=== PATIENT | female | born 1935 | race Caucasian/White ===

== ENCOUNTER 2021-02-15 00:43 | Observation (INO) | payer MEDICARE ==
[~2021-02-15] VITALS: Ht 160 cm; Wt 48.9 kg
[~2021-02-15 00:43] MED LIST: ACHD5005 PO; LEVO50TA6 PO; MELO7.5T46 PO
[2021-02-15] MEDS ORDERED: NS IV 1000 ML 1,000 ML IV SCH (01:00)
--- NOTE | 2021-02-15 01:06 | ED General ---
General Stated Complaint: AMS Source of Information: EMS, Family Exam Limitations: Physical Impairments History of Present Illness Date Seen by Provider: Feb 15, 2021 Time Seen by Provider: 00:50 Initial Comments Patient is an 85-year-old female who presents to the emergency department by EMS this evening with a chief complaint of altered mental status. EMS initially states that the patient has been feeling poorly for 24 hours family states that the patient has been feeling unwell throughout the duration of the evening and then all of a sudden between 10 and 11:00 tonight seem to want to curl up on her left side and became nonverbal. Patient according to family is normally talkative and interacts with family. She had coffee earlier today and was able to eat a little bit. It seems like the illness came on rather suddenly. Family does state that she complained of a headache earlier this evening and yesterday.. The patient is unable to provide any HPI, review of systems, past medical family or social history. She feels very warm/febrile. She is slightly tachycardic. Blood pressure is adequate. She is leaning to the left with what appears to be normal gaze. Review of systems unobtainable secondary to the patient's illness at this time. Timing/Duration: 4-6 Hours Severity: Severe Allergies and Home Medications Allergies Coded Allergies: NKANo Known Allergies (Verified Allergy, Unknown, 12/08/06) Home Medications Hydrocodone Bit/Acetaminophen 1 Each Tablet, 1 EACH PO Q4-6HR PRN for PAIN- MODERATE Prescribed by: ADDISON WYNN on 11/09/19 1036 Levothyroxine Sodium 50 Mcg Tablet, 50 MCG PO DAILY, (Reported) Meloxicam 7.5 Mg Tablet, 7.5 MG PO BID, (Reported) Patient Home Medication List Home Medication List Reviewed: Yes Review of Systems Review of Systems Constitutional: see HPI Psychiatric/Neurological: Headache All Other Systems Reviewed Negative Unless Noted: Yes Past Xgtubuh-Wmfkwh-Lzvbum Hx Patient Social History 2nd Hand Smoke Exposure: No Recent Hopitalizations: No Immunizations Up To Date Tetanus Booster (TDap): Unknown Seasonal Allergies Seasonal Allergies: No Past Medical History Surgeries: Yes Orthopedic Respiratory: No Cardiac: Yes High Cholesterol Neurological: No Genitourinary: No Gastrointestinal: No Musculoskeletal: Yes Arthritis, Fractures Endocrine: Yes Hypothyroidsim HEENT: No Cancer: No Psychosocial: No Integumentary: No Family Medical History No Pertinent Family Hx Physical Exam Vital Signs Vital Signs - First Documented 02/15/21 01:39 Temp 40.1 Capillary Refill : Height, Weight, BMI Height: '" Weight: lbs. oz. kg; 20.99 BMI Method: General Appearance: Chronically ill, Cachetic Eyes: Bilateral Eye Normal Inspection, Bilateral Eye PERRL Respiratory: Lungs Clear, Normal Breath Sounds, No Accessory Muscle Use, No Respiratory Distress Cardiovascular: Regular Rate, Rhythm, Tachycardia Gastrointestinal: Non Tender, Soft, Abnormal Bowel Sounds (Hyperactive bowel sounds) Extremity: Normal Capillary Refill, Normal Inspection Neurologic/Psychiatric: Aphasia (Patient is currently nonverbal), Depressed Affect, Other (Unable to assess cranial nerves with the rest of her neurologic exam as the patient is basically unresponsive at this time, her eyes are open. When being moved from the stretcher her arm was caught and she was able to say "ow") Skin: Normal Color, Warm/Dry Focused Exam Lactate Level 02/15/21 00:55: Lactic Acid Level 1.72 Lactic Acid Level Laboratory Tests Test 02/15/21 00:55 Lactic Acid Level 1.72 MMOL/L (0.50-2.00) Within 3hrs of presentation: Admin fluids, Admin ABX, Blood cultures prior to ABX's, Lactate level Progress/Results/Core Measures Suspected Sepsis SIRS Temperature: Pulse: Respiratory Rate: Laboratory Tests 02/15/21 00:55: White Blood Count 11.5H Blood Pressure / Mean: 02/15/21 00:55: Lactic Acid Level 1.72 Laboratory Tests 02/15/21 00:55: Creatinine 0.87, INR Comment 1.1, Platelet Count 119L, Total Bilirubin 2.6H Results/Orders Lab Results Laboratory Tests Test 02/15/21 00:55 02/15/21 01:10 Range/Units White Blood Count 11.5 H 4.3-11.0 10^3/uL Red Blood Count 4.17 3.80-5.11 10^6/uL Hemoglobin 12.3 11.5-16.0 g/dL Hematocrit 39 35-52 % Mean Corpuscular Volume 93 80-99 fL Mean Corpuscular Hemoglobin 30 25-34 pg Mean Corpuscular Hemoglobin Concent 32 32-36 g/dL Red Cell Distribution Width 13.9 10.0-14.5 % Platelet Count 119 L 130-400 10^3/uL Mean Platelet Volume 10.3 9.0-12.2 fL Immature Granulocyte % (Auto) 1 % Neutrophils (%) (Auto) 94 H 42-75 % Lymphocytes (%) (Auto) 4 L 12-44 % Monocytes (%) (Auto) 1 0-12 % Eosinophils (%) (Auto) 0 0-10 % Basophils (%) (Auto) 0 0-10 % Neutrophils # (Auto) 10.8 H 1.8-7.8 10^3/uL Lymphocytes # (Auto) 0.5 L 1.0-4.0 10^3/uL Monocytes # (Auto) 0.1 0.0-1.0 10^3/uL Eosinophils # (Auto) 0.0 0.0-0.3 10^3/uL Basophils # (Auto) 0.0 0.0-0.1 10^3/uL Immature Granulocyte # (Auto) 0.1 0.0-0.1 10^3/uL Neutrophils % (Manual) 88 % Lymphocytes % (Manual) 6 % Monocytes % (Manual) 2 % Eosinophils % (Manual) 2 % Basophils % (Manual) 0 % Band Neutrophils 2 % Blood Morphology Comment NORMAL Prothrombin Time 14.6 12.2-14.7 SEC INR Comment 1.1 0.8-1.4 Activated Partial Thromboplast Time 33 24-35 SEC Sodium Level 139 135-145 MMOL/L Potassium Level 3.9 3.6-5.0 MMOL/L Chloride Level 106 98-107 MMOL/L Carbon Dioxide Level 20 L 21-32 MMOL/L Anion Gap 13 5-14 MMOL/L Blood Urea Nitrogen 24 H 7-18 MG/DL Creatinine 0.87 0.60-1.30 MG/DL Estimat Glomerular Filtration Rate > 60 BUN/Creatinine Ratio 28 Glucose Level 151 H 70-105 MG/DL Lactic Acid Level 1.72 0.50-2.00 MMOL/L Calcium Level 8.8 8.5-10.1 MG/DL Corrected Calcium 9.1 8.5-10.1 MG/DL Total Bilirubin 2.6 H 0.1-1.0 MG/DL Aspartate Amino Transf (AST/SGOT) 26 5-34 U/L Alanine Aminotransferase (ALT/SGPT) 19 0-55 U/L Alkaline Phosphatase 103 40-136 U/L Total Protein 7.0 6.4-8.2 GM/DL Albumin 3.6 3.2-4.5 GM/DL Thyroid Stimulating Hormone (TSH) 1.81 0.35-4.94 UIU/ML Urine Color YELLOW Urine Clarity CLOUDY Urine pH 5.5 5-9 Urine Specific [place] 1.025 H 1.016-1.022 Urine Protein 2+ H NEGATIVE Urine Glucose (UA) NEGATIVE NEGATIVE Urine Ketones TRACE H NEGATIVE Urine Nitrite POSITIVE H NEGATIVE Urine Bilirubin NEGATIVE NEGATIVE Urine Urobilinogen 0.2 < = 1.0 MG/DL Urine Leukocyte Esterase 2+ H NEGATIVE Urine RBC (Auto) 3+ H NEGATIVE Urine RBC 5-10 H /HPF Urine WBC TNTC H /HPF Urine Squamous Epithelial Cells NONE /HPF Urine Crystals NONE /LPF Urine Bacteria LARGE H /HPF Urine Casts NONE /LPF Urine Mucus NEGATIVE /LPF Urine Culture Indicated CULTURE PENDING My Orders Orders - DAYDAY BROWN MD Cbc With Automated Diff (02/15/21 00:58) Comprehensive Metabolic Panel (02/15/21 00:58) Blood Culture (02/15/21 00:58) Sputum Culture (02/15/21 00:58) Urinalysis (02/15/21 00:58) Urine Culture (02/15/21 00:58) Protime With Inr (02/15/21 00:58) Partial Thromboplastin Time (02/15/21 00:58) Chest 1 View, Ap/Pa Only (02/15/21 00:58) Ed Iv/Invasive Line Start (02/15/21 00:58) Ed Iv/Invasive Line Start (02/15/21 00:58) Vital Signs Adult Sepsis Patie Q15M (02/15/21 00:58) O2 (02/15/21 00:58) Remove Rings In Anticipation O (02/15/21 00:58) Lactic Acid Analyzer (02/15/21 00:58) Ct Head Wo (02/15/21 00:58) Catheter(Urinary) Insert & Ass 03,15 (02/15/21 00:59) Ns Iv 1000 Ml (Sodium Chloride 0.9%) (02/15/21 01:00) Ekg Tracing (02/15/21 01:00) Thyroid Stimulating Hormone (02/15/21 01:00) Acetaminophen Suppository (Tylenol Suppo (02/15/21 01:30) Ceftriaxone For Iv Use (Rocephin For I (02/15/21 01:30) Manual Differential (02/15/21 00:55) Fentanyl Inj (Sublimaze Injection) (02/15/21 02:00) Medications Given in ED Current Medications Medications Dose Ordered Sig/Aleksey Route Start Time Stop Time Status Last Admin Dose Admin Acetaminophen 650 mg ONCE ONCE MO 02/15/21 01:30 02/15/21 01:31 DC 02/15/21 01:39 650 MG Ceftriaxone Sodium 1000 mg/ Sterile Water 10 ml @ 200 mls/hr ONCE ONCE IV 02/15/21 01:30 02/15/21 01:32 DC 02/15/21 01:40 200 MLS/HR Fentanyl Citrate 25 mcg ONCE ONCE IVP 02/15/21 02:00 02/15/21 02:01 02/15/21 01:58 25 MCG Vital Signs/I&O 02/15/21 01:39 Temp 40.1 Capillary Refill : Progress Note : Time: 02:03 Progress Note Patient seen and examined, 85-year-old female with a chief complaint of altered mental status. Patient was found to be quite febrile with a temperature of 104.2 rectal. She is slightly tachycardic her blood pressure is 142/67. Lactic is less than 2. Patient has a mild leukocytosis. She has grossly infected urine and is fairly somnolent/altered. Patient will not answer questions. She does seem to localize pain and has discomfort with medical staff procedures. Patient is hydrated with 2 L of IV fluids here in the emergency department Rocephin is started. Case is discussed with Dr. Cherry who is on for the hospitalist service. Patient will be admitted to the ICU overnight. She will receive normal saline at 1-1/2 times maintenance, 150 cc/h. Tylenol as needed for fever and Rocephin every 24 hours. Patient is a DNR. I have talked with the daughters and let them know the plan of care. They are agreeable. Patient does look a tad bit more alert as her fever has come down. Heart rate is down to the mid 90's Diagnostic Imaging Plain Films/CT/US/NM/MRI: chest Comments normal mediastinal structures, tortuous aorta; no infiltrates or effusions; normal bony structures CT Brain: no acute intrancranial abnormalities per [facility] Departure Communication (Admissions) Time/Spoke to Admitting Phy: 02:[address] Cherry who accepts the patient for inpatient admission to the ICU Impression Primary Impression: Altered mental status Qualified Codes: R41.82 - Altered mental status, unspecified Additional Impression: Urinary tract infection Qualified Codes: N10 - Acute pyelonephritis Disposition: ADMITTED INPATIENT Condition: Stable Admissions Decision to Admit Reason: Admit from ER (General) Decision to Admit/Date: Feb 15, 2021 Time/Decision to Admit Time: 02:00 Departure-Patient Inst. Referrals: DAYDAY ELLIS (PCP/Family) Primary Care Physician DAYDAY BROWN MD Feb 15, 2021 01:06
[2021-02-15 01:09] LABS: BASOPHILS % (AUTO) 0 % (0-10); EOSINOPHILS % (AUTO) 0 % (0-10); HEMATOCRIT 39 % (35-52); HEMOGLOBIN 12.3 g/dL (11.5-16.0); LYMPHOCYTES # (AUTO) 0.5 10^3/uL (1.0-4.0); LYMPHOCYTES % (AUTO) 4 % (12-44); MEAN CORPUSCULAR HEMOGLOBIN 30 pg (25-34); MEAN CORPUSCULAR HGB CONC 32 g/dL (32-36); MEAN CORPUSCULAR VOLUME 93 fL (80-99); MEAN PLATELET VOLUME 10.3 fL (9.0-12.2); MONOCYTES # (AUTO) 0.1 10^3/uL (0.0-1.0); MONOCYTES % (AUTO) 1 % (0-12); NEUTROPHILS # (AUTO) 10.8 10^3/uL (1.8-7.8); NEUTROPHILS % (AUTO) 94 % (42-75); PLATELET COUNT 119 10^3/uL (130-400); WHITE BLOOD COUNT 11.5 10^3/uL (4.3-11.0)
[2021-02-15 01:27] LABS: INR 1.1 (0.8-1.4); PROTHROMBIN TIME PATIENT 14.6 SEC (12.2-14.7)
[2021-02-15 01:30] LABS: NEUTROPHILS % (MANUAL) 88 %
[2021-02-15] MEDS ORDERED: cefTRIAXone FOR IV USE 1,000 MG in WATER (STERILE) FOR INJECTION 10 ML IV ONE (01:30)
[2021-02-15] MEDS ORDERED: ACETAMINOPHEN 650 MG SUPP (TYLENOL) PR ONE (01:30)
[2021-02-15 01:31] LABS: BAND NEUTROPHILS 2 %; BASOPHILS % (MANUAL) 0 %; EOSINOPHILS % (MANUAL) 2 %; LYMPHOCYTES % (MANUAL) 6 %; MONOCYTES % (MANUAL) 2 %; RBC MORPH NORMAL
[2021-02-15 01:35] LABS: ALANINE AMINOTRANSFERASE 19 U/L (0-55); ALBUMIN 3.6 GM/DL (3.2-4.5); ALKALINE PHOSPHATASE 103 U/L (40-136); BILIRUBIN,TOTAL 2.6 MG/DL (0.1-1.0); BUN/CREATININE RATIO 28; CALCIUM 8.8 MG/DL (8.5-10.1); CARBON DIOXIDE 20 MMOL/L (21-32); CHLORIDE 106 MMOL/L (98-107); CREATININE SERUM 0.87 MG/DL (0.60-1.30); GFR ESTIMATED > 60; GLUCOSE 151 MG/DL (70-105); POTASSIUM 3.9 MMOL/L (3.6-5.0); SODIUM 139 MMOL/L (135-145)
[2021-02-15 01:35] LABS: BILIRUBIN,URINE NEGATIVE (NEGATIVE); CLARITY,URINE CLOUDY; COLOR,URINE YELLOW; GLUCOSE, URINE (UA) NEGATIVE (NEGATIVE); KETONES,URINE TRACE (NEGATIVE); LEUKOCYTE ESTERASE ,URINE 2+ (NEGATIVE); NITRITE,URINE POSITIVE (NEGATIVE); PH,URINE 5.5 (5-9); PROTEIN,URINE 2+ (NEGATIVE)
[2021-02-15 01:38] LABS: BACTERIA,URINE LARGE /HPF; WBC,URINE TNTC /HPF
[2021-02-15] MEDS ORDERED: fentaNYL INJ 100 MCG/2 ML AMP IVP ONE (02:00)
[2021-02-15] MEDS ORDERED: NS IV 1000 ML 1,000 ML ONE (03:14)
[2021-02-15] MEDS ORDERED: EPINEPHrine 1 MG INJECTION 4 MG in NS (IVPB) 248 ML IV SCH (03:45)
[2021-02-15] MEDS ORDERED: ACETAMINOPHEN 650 MG SUPP (TYLENOL) PR PRN (03:45)
[2021-02-15] MEDS ORDERED: VASOPRESSIN INJECTION 20 UNIT in NS (IVPB) 100 ML IV SCH (03:45)
[2021-02-15] MEDS ORDERED: NOREPINEPHRINE 8 MG/250 ML 250 ML IV SCH (03:45)
[2021-02-15 04:21] VITALS: BP 142/67
[2021-02-15] MEDS: NS IV 1000 ML 1,000 ML IV SCH ×3 (04:25→17:55)
[2021-02-15] MEDS ORDERED: RT-ALBUTEROL SULF 2.5 MG/3 ML PRE-MIX VIAL INH PRN (04:30)
--- NOTE | 2021-02-15 04:39 | Pulmonary Consultation ---
History of Present Illness History of Present Illness Date Seen by Provider: Feb 15, 2021 Time Seen by Provider: 04:36 Date of Admission Allergies and Home Medications Allergies Coded Allergies: NKANo Known Allergies (Verified Allergy, Unknown, 12/08/06) Home Medications Hydrocodone Bit/Acetaminophen 1 Each Tablet, 1 EACH PO Q4-6HR PRN for PAIN- MODERATE Prescribed by: ADDISON WYNN on 11/09/19 1036 Levothyroxine Sodium 50 Mcg Tablet, 50 MCG PO DAILY, (Reported) Meloxicam 7.5 Mg Tablet, 7.5 MG PO BID, (Reported) Past Pwltdqe-Yglgpy-Ibxaql Hx Patient Social History Alcohol Use: Denies Use Smoking Status: Never a Smoker 2nd Hand Smoke Exposure: No Recent Infectious Disease Expo: No Recent Hopitalizations: No Have you traveled recently?: No Immunizations Up To Date Tetanus Booster (TDap): Unknown Seasonal Allergies Seasonal Allergies: No Past Medical History Surgeries: Yes Orthopedic Respiratory: No Cardiac: Yes High Cholesterol Neurological: No Genitourinary: No Gastrointestinal: No Musculoskeletal: Yes Arthritis, Fractures Endocrine: Yes Hypothyroidsim HEENT: No Cancer: No Psychosocial: No Integumentary: No Family Medical History No Pertinent Family Hx Review of Systems Time Seen by Provider: 04:36 Sepsis Event Evaluation Height, Weight, BMI Height: '" Weight: lbs. oz. kg; 18.90 BMI Method: Exam Exam Vital Signs Date Time Temp Pulse Resp B/P (MAP) Pulse Ox O2 Delivery O2 Flow Rate FiO2 02/15/21 04:21 40.1 104 97 02/15/21 04:00 96 Nasal Cannula 3.00 02/15/21 03:22 84 20 121/59 98 02/15/21 03:15 37.6 96 18 120/75 (90) 97 Nasal Cannula 3.00 02/15/21 01:39 40.1 02/15/21 01:17 40.1 93 22 145/74 (97) 98 02/15/21 00:46 38.1 104 24 133/67 (89) 97 Room Air 3.00 02/15/21 00:46 98 Nasal Cannula 3.00 I & O 02/15/21 07:00 Intake Total 400 ml Balance 400 ml Height & Weight Height: '" Weight: lbs. oz. kg; 18.90 BMI Method: General Appearance: Chronically ill, Cachetic Respiratory: Lungs Clear, Normal Breath Sounds, No Accessory Muscle Use, No Respiratory Distress Cardiovascular: Regular Rate, Rhythm, Tachycardia Capillary Refill: Less Than 3 Seconds Extremity: Normal Capillary Refill, Normal Inspection Neurologic/Psychiatric: Aphasia (Patient is currently nonverbal), Depressed Affect, Other (Unable to assess cranial nerves with the rest of her neurologic exam as the patient is basically unresponsive at this time, her eyes are open. When being moved from the stretcher her arm was caught and she was able to say "ow") Skin: Normal Color, Warm/Dry Results Lab Laboratory Tests 02/15/21 00:55 Assessment/Plan Assessment/Plan UTI -Continue Rocephin -IVF -Monitor -Cultures pending Metabolic encephalopathy probably secondary to UTI DHAVAL DANIELS DO Feb 15, 2021 04:39
[2021-02-15 05:00] LABS: MAGNESIUM 1.6 MG/DL (1.6-2.4); PHOSPHORUS 2.1 MG/DL (2.3-4.7)
--- NOTE | 2021-02-15 06:46 | Diagnostic Imaging Report ---
PROCEDURE: CT head without contrast. TECHNIQUE: Multiple contiguous axial images were obtained through the brain without the use of intravenous contrast. Auto Exposure Controls were utilized during the CT exam to meet ALARA standards for radiation dose reduction. INDICATION: Altered mental status. FINDINGS: There is prominence of the ventricles and sulci. There is no hydrocephalus or cerebral edema. There is no midline shift or mass-effect. There is no intracranial mass, hemorrhage, or extra-axial fluid collection. There is some diffuse decreased attenuation of the periventricular white matter which is nonspecific. The visualized paranasal sinuses and mastoid air cells are clear. There are no regional areas of decreased attenuation appreciated to suggest an acute CVA. IMPRESSION: 1. No acute intracranial process. 2. Age-appropriate atrophy. 3. Decreased attenuation of the periventricular white matter which is nonspecific, however, likely reflects senescent change and/or chronic small vessel ischemic disease. Dictated by: Dictated on workstation # [id number]
--- NOTE | 2021-02-15 07:21 | Diagnostic Imaging Report ---
INDICATION: Altered mental status, fever and sepsis. Comparison made with prior examination 11/03/2019 FINDINGS: The heart size is normal. Lungs are clear. There is no pleural effusion or pneumothorax. Mediastinum is unremarkable. Some air trapping compatible with COPD. IMPRESSION: COPD, however no other acute cardiopulmonary abnormality. Dictated by: Dictated on workstation # [id number]
[2021-02-15] MEDS ORDERED: MELATONIN 3 MG TABLET PO PRN (11:45)
[2021-02-15] MEDS ORDERED: ONDANSETRON 4 MG/2 ML (SDV) Z0FRAN IV PRN (11:45)
[2021-02-15] MEDS ORDERED: ANTACID SUSP 30 ML UDC (MYLANTA) PO PRN (11:45)
[2021-02-15] MEDS ORDERED: ACETAMINOPHEN 325 MG TABLET PO PRN (11:45)
[2021-02-15] MEDS ORDERED: BISACODYL 10 MG SUPP (DULCOLAX) PR PRN (11:45)
[2021-02-15] MEDS ORDERED: polyethylene glycoL POWDER 17 GM (MIRALAX) PACK PO PRN (11:45)
[2021-02-15] MEDS ORDERED: ONDANSETRON 4 MG (ZOFRAN) ORAL DISSOLVE TAB PO PRN (11:45)
[2021-02-15] MEDS: ENOXAPARIN 30 MG/0.3 ML (LOVENOX) SYR SC SCH (11:56)
--- NOTE | 2021-02-15 12:30 | History & Physical-Hospitalist ---
History of Present Illness HPI/Chief Complaint Mira Barraza is an 85-year-old female who presented with altered mental status. She lives at home with her daughter who helps to take care of her. She is confined to her recliner. She reports that she has been able to walk for at least several months. She is unable to tell me why she has been unable to ambulate. She reports that she was having fevers at home. She denies any dysuria or abdominal pain. She denies any shortness of breath or cough. She denies any chest pain. She denies any nausea or vomiting. She denies any diarrhea. Source: patient Exam Limitations: no limitations Date Seen 02/15/21 Time Seen by a Provider: 09:20 Attending Physician Veronica Cherry DO PCP No,Local Physician Referring Physician Date of Admission Feb 15, 2021 at 02:00 Home Medications & Allergies Home Medications Reviewed patient Home Medication Reconciliation performed by pharmacy medication reconciliations turfgrass technician and/or nursing. Patients Allergies have been reviewed. Allergies Allergies Coded Allergies NKANo Known Allergies (Verified Allergy, Unknown, 12/08/06) Past Fpieqxv-Uprtjb-Dmxaii Hx Past Med/Social Hx: Reviewed Nursing Past Med/Soc Hx Patient Social History Alcohol Use: Denies Use Recreational Drug Use: No Smoking Status: Never a Smoker 2nd Hand Smoke Exposure: No Recent Foreign Travel: No Contact w/other who traveled: No Recent Hopitalizations: No Recent Infectious Disease Expo: No Immunizations Up To Date Tetanus Booster (TDap): Unknown Seasonal Allergies Seasonal Allergies: No Past Medical History Surgeries: Orthopedic Cardiac: High Cholesterol Musculoskeletal: Arthritis, Fractures Endocrine: Hypothyroidsim Family History No Pertinent Family Hx Review of Systems Constitutional: fever EENTM: no symptoms reported Respiratory: no symptoms reported Cardiovascular: no symptoms reported Gastrointestinal: no symptoms reported Genitourinary: no symptoms reported Musculoskeletal: no symptoms reported Skin: no symptoms reported Psychiatric/Neurological: No Symptoms Reported Physical Exam Physical Exam Vital Signs Vital Signs - First Documented 02/15/21 00:46 Temp 38.1 Pulse 104 Resp 24 B/P (MAP) 133/67 (89) Pulse Ox 98 O2 Delivery Nasal Cannula O2 Flow Rate 3.00 Capillary Refill : Less Than 3 Seconds Height, Weight, BMI Height: '" Weight: lbs. oz. kg; 18.90 BMI Method: General Appearance: No Apparent Distress, Chronically ill, Thin HEENT: PERRL/EOMI, Pharynx Normal Neck: Normal Inspection, Supple Respiratory: Lungs Clear, Normal Breath Sounds, No Respiratory Distress Cardiovascular: Regular Rate, Rhythm, No Edema, No Murmur Gastrointestinal: Normal Bowel Sounds, Non Tender, Soft Extremity: Normal Inspection, Non Tender, No Pedal Edema Neurologic/Psychiatric: Alert, Oriented x3, Motor Weakness Skin: Normal Color, Warm/Dry Results Results/Procedures Labs Laboratory Tests 02/15/21 00:55 Patient resulted labs reviewed. Imaging: Reviewed Imaging Report Assessment/Plan Admission Diagnosis Sepsis due to UTI Admission Status: Inpatient Order (span 2 midnights) Reason for Inpatient Admission: UTI requiring IV antibiotics Assessment and Plan Sepsis due to UTI Septic encephalopathy CT Head unremarkable SIRS+ with fever and tachycardia UA consistent with UTI Urine culture pending Started on Rocephin IV fluids Blood cultures pending Transfer to 4th floor Debility PT/OT Hypothyroidism Osteoarthritis Continue home meds after med rec completed DVT prophylaxis: Lovenox Diagnosis/Problems Diagnosis/Problems (1) Sepsis due to urinary tract infection Status: Acute (2) Septic encephalopathy Status: Acute (3) Debility Status: Acute (4) Hypothyroidism Status: Chronic (5) Osteoarthritis Status: Chronic CHIKA HERNÁNDEZ MD Feb 15, 2021 12:30
--- NOTE | 2021-02-15 13:44 | Physical Therapy Progress Note ---
Therapy Progress Note PT attempted assessment, however, patient adamantly declined stating, "I don't need you. I don't and can't walk. You can leave." Family present. 1 ref/DC MARGIE ISLAS PT Feb 15, 2021 13:44
--- NOTE | 2021-02-15 14:13 | Occ Therapy Progress Note ---
Therapy Progress Note OT order received, chart reviewed. Pt. presented to this facility today, with AMS, sepsis, and UTI. PT attempted treatment, after multiple visits from other providers. Pt. agitated and refused treatment. Will attempt treatment in a.m. due to not wanting to further agitate pt. Thank you for this referral. [id number] MONTEZ GANDARA OT Feb 15, 2021 14:13
[2021-02-15] MEDS: SENNOSIDES 8.6 MG (SENOKOT) TAB PO SCH (20:10)
[2021-02-15] MEDS: DOCUSATE SODIUM 100 MG (COLACE) CAP PO SCH (20:10)
[2021-02-15] MEDS ORDERED: cefTRIAXone 1,000 MG IV (ROCEPHIN) VIAL ONE (21:59)
[2021-02-15] MEDS ORDERED: WATER (STERILE) FOR INJECTION 10 ML ONE (21:59)
[2021-02-15] MEDS ORDERED: cefTRIAXone 1,000 MG/SWFI 10 ML IV PUSH IV SCH ×2 (22:00)
[2021-02-16] MEDS: NS IV 1000 ML 1,000 ML IV SCH (03:57)
[2021-02-16 05:53] LABS: BASOPHILS % (AUTO) 0 % (0-10); EOSINOPHILS # (AUTO) 0.2 10^3/uL (0.0-0.3); EOSINOPHILS % (AUTO) 2 % (0-10); HEMATOCRIT 31 % (35-52); HEMOGLOBIN 10.1 g/dL (11.5-16.0); LYMPHOCYTES # (AUTO) 1.4 10^3/uL (1.0-4.0); LYMPHOCYTES % (AUTO) 12 % (12-44); MEAN CORPUSCULAR HEMOGLOBIN 30 pg (25-34); MEAN CORPUSCULAR HGB CONC 33 g/dL (32-36); MEAN CORPUSCULAR VOLUME 92 fL (80-99); MEAN PLATELET VOLUME 12.2 fL (9.0-12.2); MONOCYTES # (AUTO) 1.1 10^3/uL (0.0-1.0); MONOCYTES % (AUTO) 10 % (0-12); NEUTROPHILS # (AUTO) 8.6 10^3/uL (1.8-7.8); NEUTROPHILS % (AUTO) 75 % (42-75); PLATELET COUNT 73 10^3/uL (130-400); WHITE BLOOD COUNT 11.5 10^3/uL (4.3-11.0)
[2021-02-16 06:08] LABS: CHLORIDE 117 MMOL/L (98-107); POTASSIUM 3.6 MMOL/L (3.6-5.0); SODIUM 144 MMOL/L (135-145)
[2021-02-16 06:10] LABS: GLUCOSE 84 MG/DL (70-105)
[2021-02-16 06:11] LABS: CARBON DIOXIDE 17 MMOL/L (21-32)
[2021-02-16 06:14] LABS: CREATININE SERUM 0.74 MG/DL (0.60-1.30); GFR ESTIMATED > 60
[2021-02-16 06:15] LABS: BUN/CREATININE RATIO 23
[2021-02-16] MEDS: DOCUSATE SODIUM 100 MG (COLACE) CAP PO SCH (07:50)
[2021-02-16] MEDS: SENNOSIDES 8.6 MG (SENOKOT) TAB PO SCH (07:51)
[2021-02-16] MEDS ORDERED: CEFD300C3 PO (11:29)
--- NOTE | 2021-02-16 13:49 | Occ Therapy Progress Note ---
Therapy Progress Note Pt expresses she does not desire therapy services. Pt states, "You can look at my legs and see I won't walk." Pt is educated on OT's role in self-care. pt expresses she has help at home (family assists with all tasks with 24 hour care, daughter present to attest). Pt expresses she desires to dc and is at PLOF. Pt denies OT services, doesn't have any questions on d/c home. 1, refusal. STEFAN AYALA OTR Feb 16, 2021 13:49
[2021-02-16] MEDS: ENOXAPARIN 30 MG/0.3 ML (LOVENOX) SYR SC SCH (13:53)
[2021-02-16 15:30] VITALS: BP 132/65
--- NOTE | 2021-02-17 10:48 | Discharge Summary ---
Discharge Summary Hospital Course Was the Problem List Reviewed?: Yes Problems/Dx: (1) Sepsis due to urinary tract infection Status: Acute (2) Septic encephalopathy Status: Acute (3) Debility Status: Acute (4) Hypothyroidism Status: Chronic (5) Osteoarthritis Status: Chronic Hospital Course Date of Admission: Feb 15, 2021 at 02:00 Admission Diagnosis : Sepsis due to UTI Family Physician/Provider: Rema French Date of Discharge: 02/17/21 Discharge Diagnosis: Sepsis due to UTI Hospital Course: Mira Barraza is an 85-year-old female who presented with altered mental status and was admitted with sepsis due to urinary tract infection. She was treated with IV antibiotics and her altered mental status and sepsis quickly resolved. Her urine culture was growing E. coli but final sensitivities were not available at the time of discharge. She was started on empiric Omnicef. She should follow-up with her primary care physician. She should resume the home health care. 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 Follow up with your primary care physician. Resume home health care. Return with worsening symptoms. Discharge Planning: <30 minutes discharge planning Discharge Instructions Discharge Diet: No Restrictions Activity as Tolerated: Yes Discharge Physical Examination Vital Signs Vital Signs Date Time Temp Pulse Resp B/P (MAP) Pulse Ox O2 Delivery O2 Flow Rate FiO2 02/16/21 15:30 36.1 71 18 132/65 98 Room Air 02/15/21 10:00 3.00 General Appearance: No Apparent Distress, Chronically ill, Thin Respiratory: Lungs Clear, Normal Breath Sounds, No Respiratory Distress Cardiovascular: Regular Rate, Rhythm, No Edema, No Murmur Gastrointestinal: Normal Bowel Sounds, Non Tender, Soft Extremity: Normal Inspection, No Pedal Edema Skin: Normal Color, Warm/Dry Neurologic/Psychiatric: Alert, Oriented x3, Normal Mood/Affect, Motor Weakness Allergies: Coded Allergies: NKANo Known Allergies (Verified Allergy, Unknown, 12/08/06) Discharge Summary Date of Admission Feb 15, 2021 at 02:00 Date of Discharge Feb 16, 2021 at 15:30 Discharge Date: Feb 16, 2021 Discharge Time: 15:30 Admission Diagnosis Sepsis due to UTI Discharge Diagnosis Sepsis due to UTI (1) Sepsis due to urinary tract infection Status: Acute (2) Septic encephalopathy Status: Acute (3) Debility Status: Acute (4) Hypothyroidism Status: Chronic (5) Osteoarthritis Status: Chronic CHIKA HERNÁNDEZ MD Feb 17, 2021 10:47
== END 2021-02-16 15:30 | disposition home health service (06) ==
LOC: EDUNIT# 00:43 → ER 00:44 → ICU 02:00 → UNDOADMIN 02:00 → ICU 04:09 → 4TH 13:00 → ICU 13:00 → UNDODISIN 02-16 15:30
PROVIDERS: ADMIT Internal Medicine; ATTEND Internal Medicine
DX: A41.9 Sepsis, unspecified organism (principal); G93.41 Metabolic encephalopathy; N39.0 Urinary tract infection, site not specified; E78.00 Pure hypercholesterolemia, unspecified; M19.90 Unspecified osteoarthritis, unspecified site; E03.9 Hypothyroidism, unspecified; R53.81 Other malaise
CPT/HCPCS: 51702; 70450; 71045; 80048; 80053; 81000; 83605; 83735; 84100; 84443; 85007; 85025; 85027; 85610; 85730; 87040; 87077; 87081; 87088; 87186; 96374; 96375; 99285; G0378 ×2; 36415

== ENCOUNTER 2022-01-03 14:07 | Observation (INO) | payer MEDICARE ==
[~2022-01-03] VITALS: Ht 157 cm; Wt 54.0 kg
[~2022-01-03 14:07] MED LIST changes: +CEFD300C3 PO
[2022-01-03] MEDS ORDERED: NS IV 500 ML 500 ML IV ONE ×2 (14:15→16:15)
[2022-01-03 14:20] LABS: BASOPHILS % (AUTO) 1 % (0-10); EOSINOPHILS # (AUTO) 0.2 10^3/uL (0.0-0.3); EOSINOPHILS % (AUTO) 3 % (0-10); HEMATOCRIT 39 % (35-52); LYMPHOCYTES # (AUTO) 1.1 10^3/uL (1.0-4.0); LYMPHOCYTES % (AUTO) 20 % (12-44); MEAN CORPUSCULAR HEMOGLOBIN 30 pg (25-34); MEAN CORPUSCULAR HGB CONC 31 g/dL (32-36); MEAN CORPUSCULAR VOLUME 98 fL (80-99); MEAN PLATELET VOLUME 11.3 fL (9.0-12.2); MONOCYTES # (AUTO) 0.5 10^3/uL (0.0-1.0); MONOCYTES % (AUTO) 8 % (0-12); NEUTROPHILS # (AUTO) 3.7 10^3/uL (1.8-7.8); NEUTROPHILS % (AUTO) 68 % (42-75); PLATELET COUNT 147 10^3/uL (130-400); WHITE BLOOD COUNT 5.4 10^3/uL (4.3-11.0)
--- NOTE | 2022-01-03 14:20 | ED Abdominal Pain ---
General Chief Complaint: Abdominal/GI Problems Stated Complaint: ABD PAIN Source of Information: Patient, EMS Exam Limitations: No Limitations History of Present Illness Date Seen by Provider: Jan 03, 2022 Time Seen by Provider: 14:06 Initial Comments The patient presents the ER by EMS from home where she lives with her daughter and chief complaint she has had pain x1 day left lower quadrant abdomen. Its persistent, amounting 6-7 out of 10 presently. She says is not any better with bowel movements. Has been constipated for the past week or so only having a small stool every 3 days. No history of colonoscopy. No history of abdominal surgeries. She had a right hip replaced a few years ago and has not been able to walk since then. She has been using suppositories and MiraLAX without relief recently. She is not having fevers nausea vomiting diarrhea or dysuria. She denies a history of diverticulitis. She feels bloated with abdominal distention. Allergies and Home Medications Allergies Coded Allergies: NAYANANo Known Allergies (Verified Allergy, Unknown, 12/08/06) Patient Home Medication List Home Medication List Reviewed: Yes Cefdinir (Cefdinir) 300 Mg Capsule, 300 MG PO BID Prescribed by: CHIKA HERNÁNDEZ on 02/16/21 1129 Cefdinir (Cefdinir) 300 Mg Capsule, 300 MG PO BID Prescribed by: JARED ALBERT on 01/03/22 1626 Levothyroxine Sodium (Levothyroxine Sodium) 50 Mcg Tablet, 50 MCG PO DAILY, (Reported) Entered as Reported by: ELIER PEREZ on 11/03/191939 Meloxicam (Meloxicam) 7.5 Mg Tablet, 7.5 MG PO BID, (Reported) Entered as Reported by: ELIER PEREZ on 11/03/191941 Review of Systems Review of Systems Constitutional: No chills, No diaphoresis EENTM: No Blurred Vision, No Double Vision Respiratory: Denies Cough, Denies Shortness of Air, Denies SOA With Exertion Cardiovascular: Denies Chest Pain, Denies Lightheadedness Gastrointestinal: See HPI; Denies Abdominal Pain; Constipated; Denies Diarrhea, Denies Nausea, Denies Vomiting Genitourinary: Denies Burning, Denies Discharge Musculoskeletal: No back pain, No joint pain Skin: No change in color, No lesions Psychiatric/Neurological: Denies Anxiety, Denies Depressed, Denies Headache All Other Systems Reviewed Negative Unless Noted: Yes Past Fzdmpbc-Fbhqce-Xfyxud Hx Patient Social History Tobacco Use?: No Use of E-Cig and/or Vaping dev: No Substance use?: No Immunizations Up To Date Tetanus Booster (TDap): Unknown Seasonal Allergies Seasonal Allergies: No Past Medical History Surgeries: Yes Orthopedic Respiratory: No Cardiac: Yes High Cholesterol Neurological: No Genitourinary: No Gastrointestinal: No Musculoskeletal: Yes Arthritis, Fractures Endocrine: Yes Hypothyroidsim HEENT: No Cancer: No Psychosocial: No Integumentary: No Family Medical History No Pertinent Family Hx Physical Exam Vital Signs Vital Signs - First Documented 01/03/22 14:07 Temp 36.3 Pulse 67 Resp 16 B/P (MAP) 141/85 (103) Pulse Ox 96 O2 Delivery Room Air Capillary Refill : Height/Weight/BMI Height: '" Weight: lbs. oz. kg; 18.90 BMI Method: General Appearance: WD/WN, mild distress HEENT: PERRL/EOMI, pharynx normal Neck: full range of motion, normal inspection Respiratory: lungs clear, normal breath sounds, no respiratory distress, no accessory muscle use Cardiovascular: normal peripheral pulses, regular rate, rhythm Gastrointestinal: normal bowel sounds, soft, distended, tenderness (Mild left lower quadrant abdominal tenderness with distention) Extremities: normal range of motion, non-tender, normal capillary refill Neurologic/Psychiatric: alert, normal mood/affect, oriented x 3 Skin: normal color, warm/dry Progress/Results/Core Measures Results/Orders Lab Results Laboratory Tests Test 01/03/22 14:10 01/03/22 14:48 Range/Units White Blood Count 5.4 4.3-11.0 10^3/uL Red Blood Count 3.95 3.80-5.11 10^6/uL Hemoglobin 12.0 11.5-16.0 g/dL Hematocrit 39 35-52 % Mean Corpuscular Volume 98 80-99 fL Mean Corpuscular Hemoglobin 30 25-34 pg Mean Corpuscular Hemoglobin Concent 31 L 32-36 g/dL Red Cell Distribution Width 14.3 10.0-14.5 % Platelet Count 147 130-400 10^3/uL Mean Platelet Volume 11.3 9.0-12.2 fL Immature Granulocyte % (Auto) 0 % Neutrophils (%) (Auto) 68 42-75 % Lymphocytes (%) (Auto) 20 12-44 % Monocytes (%) (Auto) 8 0-12 % Eosinophils (%) (Auto) 3 0-10 % Basophils (%) (Auto) 1 0-10 % Neutrophils # (Auto) 3.7 1.8-7.8 10^3/uL Lymphocytes # (Auto) 1.1 1.0-4.0 10^3/uL Monocytes # (Auto) 0.5 0.0-1.0 10^3/uL Eosinophils # (Auto) 0.2 0.0-0.3 10^3/uL Basophils # (Auto) 0.0 0.0-0.1 10^3/uL Immature Granulocyte # (Auto) 0.0 0.0-0.1 10^3/uL Sodium Level 142 135-145 MMOL/L Potassium Level 3.8 3.6-5.0 MMOL/L Chloride Level 111 H 98-107 MMOL/L Carbon Dioxide Level 22 21-32 MMOL/L Anion Gap 9 5-14 MMOL/L Blood Urea Nitrogen 24 H 7-18 MG/DL Creatinine 0.84 0.60-1.30 MG/DL Estimat Glomerular Filtration Rate 68 BUN/Creatinine Ratio 29 Glucose Level 91 70-105 MG/DL Calcium Level 9.1 8.5-10.1 MG/DL Corrected Calcium 9.3 8.5-10.1 MG/DL Total Bilirubin 0.9 0.1-1.0 MG/DL Aspartate Amino Transf (AST/SGOT) 18 5-34 U/L Alanine Aminotransferase (ALT/SGPT) 9 0-55 U/L Alkaline Phosphatase 65 40-136 U/L C-Reactive Protein High Sensitivity 0.11 0.00-0.50 MG/DL Total Protein 7.1 6.4-8.2 GM/DL Albumin 3.8 3.2-4.5 GM/DL Lipase 86 H 8-78 U/L Urine Color YELLOW Urine Clarity CLOUDY Urine pH 6.0 5-9 Urine Specific [place] 1.010 L 1.016-1.022 Urine Protein NEGATIVE NEGATIVE Urine Glucose (UA) NEGATIVE NEGATIVE Urine Ketones NEGATIVE NEGATIVE Urine Nitrite POSITIVE H NEGATIVE Urine Bilirubin NEGATIVE NEGATIVE Urine Urobilinogen 0.2 < = 1.0 MG/DL Urine Leukocyte Esterase 2+ H NEGATIVE Urine RBC (Auto) 3+ H NEGATIVE Urine RBC 0-2 /HPF Urine WBC >100 H /HPF Urine Crystals NONE /LPF Urine Bacteria LARGE H /HPF Urine Casts NONE /LPF Urine Mucus NEGATIVE /LPF Urine Culture Indicated YES My Orders Orders - JARED ALBERT Cbc With Automated Diff (01/03/22 14:13) Comprehensive Metabolic Panel (01/03/22 14:13) Hs C Reactive Protein (01/03/22 14:13) Lipase (01/03/22 14:13) Ua Culture If Indicated (01/03/22 14:13) Ct Abdomen/Pelvis W (01/03/22 14:13) Ed Iv/Invasive Line Start (01/03/22 14:13) Ns Iv 500 Ml (Sodium Chloride 0.9%) (01/03/22 14:15) Fentanyl Inj (Sublimaze Injection) (01/03/22 14:30) Iohexol Injection (Omnipaque 350 Mg/Ml 1 (01/03/22 14:45) Received Contrast (Hold Metformin- Contr (01/03/22 14:45) Diatrizoate Meglum/Sodium 37% (Gastrogra (01/03/22 14:45) Urine Culture (01/03/22 14:48) Ceftriaxone 1 Gm Pre-Mix (Rocephin 1 Gm (01/03/22 16:15) Ed Iv/Invasive Line Start (01/03/22 16:05) Ns Iv 500 Ml (Sodium Chloride 0.9%) (01/03/22 16:15) Na Phos/Na Biphos Enema (Fleet Enema Kenan (01/03/22 16:14) Medications Given in ED Current Medications Medications Dose Ordered Sig/Aleksey Route Start Time Stop Time Status Last Admin Dose Admin Ceftriaxone Sodium/Dextrose 50 ml @ 100 mls/hr ONCE ONCE IV 01/03/22 16:15 01/03/22 16:44 DC 01/03/22 16:21 100 MLS/HR Diatrizoate Meglum/ Diatrizoate Sod 20 ml ONCE ONCE PO 01/03/22 14:45 01/03/22 14:46 DC 01/03/22 15:17 20 ML Fentanyl Citrate 25 mcg ONCE ONCE IVP 01/03/22 14:30 01/03/22 14:31 DC 01/03/22 14:27 25 MCG Iohexol 30 ml ONCE ONCE IV 01/03/22 14:45 01/03/22 14:46 DC 01/03/22 15:18 100 ML Sodium Biphosphate/ Sodium Phosphate 1 ea STK-MED ONCE .ROUTE 01/03/22 16:14 01/03/22 16:18 DC 01/03/22 16:25 1 EA Sodium Chloride 500 ml @ 0 mls/hr Q0M ONCE IV 01/03/22 14:15 01/03/22 14:16 DC 01/03/22 14:27 500 MLS/HR Sodium Chloride 500 ml @ 0 mls/hr Q0M ONCE IV 01/03/22 16:15 01/03/22 16:16 DC 01/03/22 16:22 500 MLS/HR Vital Signs/I&O 01/03/22 14:07 Temp 36.3 Pulse 67 Resp 16 B/P (MAP) 141/85 (103) Pulse Ox 96 O2 Delivery Room Air Progress Progress Note #1: Time: 14:19 Progress Note Bowel obstruction, obstipation, less likely diverticulitis/colitis. Plan to get a CT with IV and oral contrast give her half a liter of fluids and 25 mcg of fentanyl. She is accompanied by labs from the 16th, yesterday which showed a lipase of 87. She denies ever having a history of pancreatitis, alcohol consum ption or diabetes. Aseptic vital signs Progress Note #2: Time: 16:15 Progress Note The daughter is unable to complete enemas at home due to her own debility and states that they do not qualify for home health nursing they just get [facility] to pay for her to be home and take care of her mother. Because of her bedbound nature we will give her another 500 of saline, Rocephin and do an enema. She is on Bactrim 3 times a week for chronic UTIs. Plan to put her on cefdinir for 5 days. Progress Note #3: Time: 17:09 Progress Note Discussed the case with Donnell Perez the nurse practitioner caring for her and her palliative care [facility]. She does not qualify for hospice. He states would be extremely difficult and unlikely to get home health come out just to do an enema for her at home. The daughter is unable to do it so we will reach out to Dr. Hernández for an observation placement for her dehydration and symptomatic obstipation. Diagnostic Imaging Diagonstic Imaging: CT Plain Films/CT/US/NM/MRI: abdomen, pelvis Comments [facility], [place] NAME: FRANCESCA [facility] REC#: [id number] PT STATUS: REG ER : 1935 PHYSICIAN: JARED ALBERT MD ADMIT DATE: 01/03/22/ER Draft Date of Exam:01/03/22 CT ABDOMEN/PELVIS W PROCEDURE: CT abdomen and pelvis with contrast. TECHNIQUE: Multiple contiguous axial images were obtained through the abdomen and pelvis after administration of intravenous contrast. Auto Exposure Controls were utilized during the CT exam to meet ALARA standards for radiation dose reduction. All CT scans use one or more of the following dose optimizing techniques: automated exposure control, MA and/or KvP adjustment based on patient size and exam type or iterative reconstruction. INDICATION: Left lower quadrant pain. COMPARISON: No priors. FINDINGS: The lung bases are clear. Sensitivity is limited by significant degree of motion artifact. There are also substantial beam-hardening artifacts generated by the dense enteric and oral contrast media. There is an elevated fecal load consistent with an at least moderate magnitude of colonic constipation. No features of impaction at the rectal vault. No focal perienteric or pericolonic edema or regional inflammatory changes are found. There were no features suggestive of diverticulitis and while the appendix can never be discretely identified, no features suggest appendicitis. There is no free air. There is no pneumatosis. There were no findings of small bowel obstruction. Spleen, adrenals, and pancreas are unremarkable. The kidneys are unobstructed. The aorta is atherosclerotic but nonaneurysmal. There were no findings of volvulus. Urinary bladder was distended but nonfocal. No hydroureteronephrosis. The right hip is postsurgical, the left arthritic but nonacute. There are degenerative changes to the spine. No acute-appearing bony abnormality. IMPRESSION: Limited by motion, at least moderate degree of constipation is present without focal impaction or obstruction. No bowel wall thickening or focal inflammatory changes. No features of appendicitis or diverticulitis. No evidence for volvulus or perforation. Nonfocal bladder distention without hydronephrosis. Chronic degenerative and postoperative changes to the bony structures. No acute-appearing osseous pathology. Dictated on workstation # [id number] Dict: 01/03/22 1526 Trans: 01/03/22 1536 [id number] Interpreted by: CRISTEL PURDY Electronically signed by: Reviewed: Reviewed by Me Departure Communication (Admissions) Time/Spoke to Admitting Phy: 17:05 Discussed the case with Dr. Hernández and he agrees to observe the patient with IV fluids, mag citrate, MiraLAX and enemas. Impression Primary Impression: Obstipation Additional Impression: UTI (urinary tract infection) Qualified Codes: N30.00 - Acute cystitis without hematuria Disposition: ADMITTED INPATIENT (obs) Condition: Stable Admissions Decision to Admit Reason: Admit from ER (General) Decision to Admit/Date: Jan 03, 2022 Time/Decision to Admit Time: 16:50 Departure-Patient Inst. Referrals: NO,LOCAL PHYSICIAN (PCP) Primary Care Physician ADYDAY ELLIS (Family) Primary Care Physician Patient Instructions: Urinary Tract Infection, Adult ED, Constipation in Adults Add. Discharge Instructions: Drink plenty of fluids. MiraLAX 3 times a day until you have good stools out. Fleet enema or suppository daily until good effects. Cefdinir 300 mg twice a day for 5 days and then go back to your Bactrim 3 times a day as scheduled. ward supervisor some probiotics and take them twice a day to prevent the side effects of antibiotics. All discharge instructions reviewed with patient and/or family. Voiced understanding. Scripts Cefdinir (Cefdinir) 300 Mg Capsule 300 MG PO BID for 5 Days, #10 CAP 0 Refills Prov: JARED ALBERT 01/03/22 JARED ALBERT Jan 03, 2022 14:20
[2022-01-03] MEDS ORDERED: fentaNYL INJ 100 MCG/2 ML AMP IVP ONE (14:30)
[2022-01-03] MEDS ORDERED: IOHEXOL 350 MG/ML 100 ML (OMNIPAQUE 350) VIAL IV ONE (14:45)
[2022-01-03] MEDS ORDERED: HOLD METFORMIN - RECEIVED CONTRAST 20 ML VIAL IV SCH (14:45)
[2022-01-03] MEDS ORDERED: DIATRIZOATE MEGLUM/SODIUM 37% 120 ML (GASTROGRAFIN) PO ONE (14:45)
[2022-01-03 14:53] LABS: BILIRUBIN,URINE NEGATIVE (NEGATIVE); CLARITY,URINE CLOUDY; COLOR,URINE YELLOW; GLUCOSE, URINE (UA) NEGATIVE (NEGATIVE); KETONES,URINE NEGATIVE (NEGATIVE); LEUKOCYTE ESTERASE ,URINE 2+ (NEGATIVE); NITRITE,URINE POSITIVE (NEGATIVE); PROTEIN,URINE NEGATIVE (NEGATIVE)
[2022-01-03 14:55] LABS: ALBUMIN 3.8 GM/DL (3.2-4.5); POTASSIUM 3.8 MMOL/L (3.6-5.0)
[2022-01-03 14:56] LABS: CALCIUM 9.1 MG/DL (8.5-10.1)
[2022-01-03 14:58] LABS: TOTAL PROTEIN 7.1 GM/DL (6.4-8.2)
[2022-01-03 15:00] LABS: BILIRUBIN,TOTAL 0.9 MG/DL (0.1-1.0)
[2022-01-03 15:01] LABS: CREATININE SERUM 0.84 MG/DL (0.60-1.30)
[2022-01-03 15:08] LABS: RBC,URINE 0-2 /HPF
[2022-01-03 15:09] LABS: BACTERIA,URINE LARGE /HPF; WBC,URINE >100 /HPF
--- NOTE | 2022-01-03 15:37 | Diagnostic Imaging Report ---
PROCEDURE: CT abdomen and pelvis with contrast. TECHNIQUE: Multiple contiguous axial images were obtained through the abdomen and pelvis after administration of intravenous contrast. Auto Exposure Controls were utilized during the CT exam to meet ALARA standards for radiation dose reduction. All CT scans use one or more of the following dose optimizing techniques: automated exposure control, MA and/or KvP adjustment based on patient size and exam type or iterative reconstruction. INDICATION: Left lower quadrant pain. COMPARISON: No priors. FINDINGS: The lung bases are clear. Sensitivity is limited by significant degree of motion artifact. There are also substantial beam-hardening artifacts generated by the dense enteric and oral contrast media. There is an elevated fecal load consistent with an at least moderate magnitude of colonic constipation. No features of impaction at the rectal vault. No focal perienteric or pericolonic edema or regional inflammatory changes are found. There were no features suggestive of diverticulitis and while the appendix can never be discretely identified, no features suggest appendicitis. There is no free air. There is no pneumatosis. There were no findings of small bowel obstruction. Spleen, adrenals, and pancreas are unremarkable. The kidneys are unobstructed. The aorta is atherosclerotic but nonaneurysmal. There were no findings of volvulus. Urinary bladder was distended but nonfocal. No hydroureteronephrosis. The right hip is postsurgical, the left arthritic but nonacute. There are degenerative changes to the spine. No acute-appearing bony abnormality. IMPRESSION: Limited by motion, at least moderate degree of constipation is present without focal impaction or obstruction. No bowel wall thickening or focal inflammatory changes. No features of appendicitis or diverticulitis. No evidence for volvulus or perforation. Nonfocal bladder distention without hydronephrosis. Chronic degenerative and postoperative changes to the bony structures. No acute-appearing osseous pathology. Dictated by: Dictated on workstation # [id number]
[2022-01-03] MEDS ORDERED: FLEET ENEMA ADULT 1 EA BTL ONE (16:14)
[2022-01-03] MEDS ORDERED: cefTRIAXone 1 GM PRE-MIX 50 ML IV ONE (16:15)
[2022-01-03] MEDS ORDERED: CEFD300C3 PO (16:26)
[2022-01-03] MEDS ORDERED: fentaNYL INJ 100 MCG/2 ML AMP IV PRN (18:30)
[2022-01-03] MEDS ORDERED: ONDANSETRON 4 MG/2 ML (SDV) Z0FRAN IV PRN (18:30)
[2022-01-03] MEDS ORDERED: ACETAMINOPHEN 325 MG TABLET PO PRN (18:30)
[2022-01-03] MEDS ORDERED: MAGNESIUM CITRATE 300 ML BTL PO ONE (18:30)
[2022-01-03] MEDS ORDERED: MAGNESIUM CITRATE 300 ML BTL PO NR (18:30)
[2022-01-03] MEDS ORDERED: hydrALAZINE (APESOLINE) 20 MG/ML VIAL IV PRN (18:30)
[2022-01-03] MEDS: LACTATED RINGERS 1,000 ML IV SCH (18:52)
[2022-01-03 20:32] VITALS: BP 160/87
[2022-01-03] MEDS: polyethylene glycoL POWDER 17 GM (MIRALAX) PACK PO SCH (21:03)
[2022-01-03 23:59] VITALS: BP 134/73
[2022-01-04] MEDS: LACTATED RINGERS 1,000 ML IV SCH ×2 (02:28→08:21)
[2022-01-04 04:03] VITALS: BP 136/71
[2022-01-04 05:46] LABS: HEMOGLOBIN 11.1 g/dL (11.5-16.0); MONOCYTES % (AUTO) 11 % (0-12)
[2022-01-04 05:48] LABS: BASOPHILS % (AUTO) 0 % (0-10); EOSINOPHILS # (AUTO) 0.2 10^3/uL (0.0-0.3); EOSINOPHILS % (AUTO) 4 % (0-10); HEMATOCRIT 35 % (35-52); LYMPHOCYTES # (AUTO) 1.2 10^3/uL (1.0-4.0); LYMPHOCYTES % (AUTO) 26 % (12-44); MEAN CORPUSCULAR HEMOGLOBIN 30 pg (25-34); MEAN CORPUSCULAR HGB CONC 32 g/dL (32-36); MEAN CORPUSCULAR VOLUME 95 fL (80-99); MEAN PLATELET VOLUME 11.1 fL (9.0-12.2); MONOCYTES # (AUTO) 0.5 10^3/uL (0.0-1.0); NEUTROPHILS # (AUTO) 2.8 10^3/uL (1.8-7.8); NEUTROPHILS % (AUTO) 59 % (42-75); PLATELET COUNT 130 10^3/uL (130-400); WHITE BLOOD COUNT 4.8 10^3/uL (4.3-11.0)
[2022-01-04 06:01] LABS: POTASSIUM 4.2 MMOL/L (3.6-5.0)
[2022-01-04 06:02] LABS: CALCIUM 8.7 MG/DL (8.5-10.1)
[2022-01-04 06:06] LABS: CREATININE SERUM 0.71 MG/DL (0.60-1.30)
[2022-01-04 08:05] VITALS: BP 157/70
[2022-01-04] MEDS: polyethylene glycoL POWDER 17 GM (MIRALAX) PACK PO SCH ×2 (08:21→13:29)
[2022-01-04] MEDS ORDERED: MILK OF MAGNESIA 400 MG/5 ML 30 ML UDC PO SCH (09:00)
[2022-01-04] MEDS ORDERED: BISACODYL 5 MG (DULCOLAX) TABLET PO SCH (09:00)
[2022-01-04] MEDS ORDERED: FLEET ENEMA ADULT 1 EA BTL PR SCH (09:00)
[2022-01-04] MEDS ORDERED: PSYL0.5244 PO (11:19)
[2022-01-04] MEDS ORDERED: LEVO-129 PO (11:19)
[2022-01-04] MEDS ORDERED: ACET-2267 PO (11:19)
[2022-01-04] MEDS ORDERED: LORA10TA7 PO (11:19)
[2022-01-04] MEDS ORDERED: SULF-11 PO (11:19)
[2022-01-04] MEDS ORDERED: NYST60PO TOP (11:19)
[2022-01-04 12:00] VITALS: BP 144/58
[2022-01-04] MEDS ORDERED: POLY17PO6 PO (12:16)
[2022-01-04 13:34] VITALS: BP 144/58
--- NOTE | 2022-01-04 18:30 | Discharge Summary ---
Discharge Summary Hospital Course Problems/Dx: (1) Obstipation Status: Acute (2) UTI (urinary tract infection) Status: Acute Qualifiers: Qualified Codes: N30.00 - Acute cystitis without hematuria Hospital Course Date of Admission: Jan 03, 2022 at 17:10 Admission Diagnosis : Obstipation, UTI Family Physician/Provider: Rema French Date of Discharge: 01/04/22 Discharge Diagnosis: Obstipation, UTI Hospital Course: Mira Barraza is an 86 year old female who was admitted with obstipation. She was given magnesium citrate and she started having bowel movements. She was also started on Miralax which she should continue at home. Her course was complicated by UTI. She was given a prescription for antibiotics to complete as an outpatient. She was discharged home in improved, stable condition. Labs and Pending Lab Test: Laboratory Tests 01/04/22 05:28: White Blood Count 4.8, Red Blood Count 3.68L, Hemoglobin 11.1L, Hematocrit 35, Mean Corpuscular Volume 95, Mean Corpuscular Hemoglobin 30, Mean Corpuscular Hemoglobin Concent 32, Red Cell Distribution Width 14.1, Platelet Count 130, Mean Platelet Volume 11.1, Immature Granulocyte % (Auto) 0, Neutrophils (%) (Auto) 59, Lymphocytes (%) (Auto) 26, Monocytes (%) (Auto) 11, Eosinophils (%) (Auto) 4, Basophils (%) (Auto) 0, Neutrophils # (Auto) 2.8, Lymphocytes # (Auto) 1.2, Monocytes # (Auto) 0.5, Eosinophils # (Auto) 0.2, Basophils # (Auto) 0.0, Immature Granulocyte # (Auto) 0.0, Percent Immature Platelet Fraction 4.4, Sodi um Level 142, Potassium Level 4.2, Chloride Level 111H, Carbon Dioxide Level 23, Anion Gap 8, Blood Urea Nitrogen 16, Creatinine 0.71, Estimat Glomerular Filtration Rate 84, BUN/Creatinine Ratio 23, Glucose Level 90, Calcium Level 8.7 Microbiology 01/03/22 Urine Culture - Preliminary, Resulted Mixed Bacterial Gillian Gram Negative Jagdish Gram Pos Mixed Bacterial Gillian Testing In Progress Home Meds Active Miralax (Polyethylene Glycol 3350) 17 Gm Powd.pack 17 Gm PO BID 30 Days Reported Sulfamethoxazole-Tmp Ss Tablet (Sulfamethoxazole/Trimethoprim) 1 Each Tablet 1 Ea PO MO,WE,FR Loratadine 10 Mg Tablet 10 Mg PO DAILY Daily Fiber (Psyllium Husk) 0.52 Gm Capsule 0.52 Gm PO BID Tylenol Extra Strength (Acetaminophen) 500 Mg Tablet 500-1,000 Mg PO Q8H PRN Nystop (Nystatin) 60 Gm Powder 1 Applic TOP TID PRN Euthyrox (Levothyroxine Sodium) 50 Mcg Tablet 50 Mcg PO DAILY Meloxicam 7.5 Mg Tablet 7.5 Mg PO BID Assessment/Pt Instructions See instructions Discharge Planning: <30 minutes discharge planning Discharge Instructions Discharge Diet: No Restrictions Activity as Tolerated: Yes Discharge Physical Examination Vital Signs Vital Signs Date Time Temp Pulse Resp B/P (MAP) Pulse Ox O2 Delivery O2 Flow Rate FiO2 01/04/22 13:34 36.8 47 16 144/58 100 Room Air General Appearance: No Apparent Distress, Thin Respiratory: Lungs Clear, No Respiratory Distress Cardiovascular: Regular Rate, Rhythm, No Murmur Gastrointestinal: Normal Bowel Sounds, Soft Extremity: Normal Inspection, Non Tender Skin: Normal Color, Warm/Dry Neurologic/Psychiatric: Alert, Normal Mood/Affect Allergies: Coded Allergies: NKANo Known Allergies (Verified Allergy, Unknown, 12/08/06) Discharge Summary Date of Admission Jan 03, 2022 at 17:10 Date of Discharge Jan 04, 2022 at 13:34 Discharge Date: Jan 04, 2022 Discharge Time: 13:34 Admission Diagnosis Obstipation Discharge Diagnosis (1) Obstipation Status: Acute (2) UTI (urinary tract infection) Status: Acute Qualifiers: Qualified Codes: N30.00 - Acute cystitis without hematuria CHIKA HERNÁNDEZ MD Jan 04, 2022 18:29
== END 2022-01-04 13:34 | disposition home or self-care (01) ==
LOC: EDUNIT# 14:07 → ER 14:08 → 4TH 17:10
PROVIDERS: ADMIT Internal Medicine; ATTEND Internal Medicine
DX: K59.00 Constipation, unspecified (principal); N30.00 Acute cystitis without hematuria; Z79.899 Other long term (current) drug therapy
CPT/HCPCS: 74177; 80048; 80053; 81000; 83690; 85025 ×2; 86141; 87088; 96361; 96365; 96375; 99284; G0378; 36415